=== PATIENT | male | born 1965 | race Caucasian/White ===

== ENCOUNTER → 2018-09-17 | Outpatient (CLI) | payer OTHER ==
[~2018-09-17] MED LIST: Desyrel50 MG PO; FLONASE ALLERG9.9 ML INH; GUAIFENESIN ER600 MG PO; Ibuprofen Ib200 MG PO; OXYM.05NI; TRAM50 PO; ZESTORETIC 20-121 EA
== END | disposition home or self-care (01) ==
LOC: LAB EV 14:14 → EDSTATUS 14:25
DX: N46.9 Male infertility, unspecified (principal)

== ENCOUNTER 2022-08-24 09:25 | Day surgery (SDC) | payer OTHER ==
[~2022-08-24] VITALS: Ht 177.8 cm; Wt 85.5 kg
[2022-08-24] MEDS ORDERED: LISI20 PO (10:07)
[2022-08-24] MEDS ORDERED: GABA300 (10:08)
[2022-08-24] MEDS ORDERED: ALLO100 PO (10:09)
[2022-08-24] MEDS ORDERED: TAMS.4ER PO (10:09)
[2022-08-24] MEDS ORDERED: CYCL10 (10:11)
[2022-08-24] MEDS ORDERED: PSEUDOEPHEDRINE30 M2 PO (10:11)
== END 2022-08-24 12:34 | disposition home or self-care (01) ==
LOC: ORSCSDS 09:25
PROVIDERS: Internal Medicine Gastroenterology
PROC: 0DBK8ZX Excision of Ascending Colon, Via Natural or Artificial Opening Endoscopic, Diagnostic (ICD-10-PCS; principal; 2022-08-24 10:45)
DX: Z12.11 Encounter for screening for malignant neoplasm of colon (principal); Z86.010 Personal history of colon polyps; K57.30 Diverticulosis of large intestine without perforation or abscess without bleeding; I10 Essential (primary) hypertension; Z79.899 Other long term (current) drug therapy
CPT/HCPCS: 88305; J0330; J0461; J2405; J2704; J7120; Q9968